=== PATIENT | male | born 2005 | race Hispanic/Latino ===

== ENCOUNTER 2025-02-04 07:12 | Emergency (ER) | payer OTHER ==
[~2025-02-04] VITALS: Ht 172.7 cm; Wt 77.8 kg
[2025-02-04] MEDS: NS (Normal Saline) 0.9% 1,000 ML IV SCH (07:30)
[2025-02-04] MEDS: MORPHINE 4 MG/ML 1 ML VIAL IV ONE (07:40)
[2025-02-04 09:29] VITALS: BP 116/66; TEMP 98; O2SAT 100
== END 2025-02-04 09:35 | disposition home or self-care (01) ==
LOC: M ED 07:12
DX: S43.015A Anterior dislocation of left humerus, initial encounter (principal); S60.222A Contusion of left hand, initial encounter; Y92.9 Unspecified place or not applicable; Y93.9 Activity, unspecified; Y99.1 Military activity; W01.0XXA Fall on same level from slipping, tripping and stumbling without subsequent striking against object, initial encounter